=== PATIENT | female | born 2000 | race Caucasian/White ===

== ENCOUNTER 2021-10-06 19:58 | Emergency (ER) | payer MEDICAID ==
[~2021-10-06] VITALS: Ht 162.6 cm; Wt 56.7 kg
[2021-10-06 20:33] VITALS: BP_SYST 121
--- NOTE | 2021-10-06 20:36 | NUR ---
Patient BIB by family from home. C/O urinary problem x 1 day. Patient reported, had painful urination, urgency and frequency since yesterday, no fever or chills.
[2021-10-06 20:48] LABS: BILIRUBIN,URINE NEGATIVE (NEGATIVE); BLOOD, URINE 3+ (NEGATIVE); COLOR,URINE YELLOW (YELLOW); GLUCOSE,URINE NEGATIVE (NEGATIVE); KETONES,URINE NEGATIVE (NEGATIVE); LEUKOCYTE ESTERASE ,URINE 2+ (NEGATIVE); NITRITE, URINE NEGATIVE (NEGATIVE); PH,URINE 5.5 (5.0-8.0); PROTEIN URINE TRACE (NEGATIVE); UROBILINOGEN,URINE 0.2 (0.2-1.0)
--- NOTE | 2021-10-06 20:51 | NUR ---
ER Dr. Sanchez at bedside examining patient.
[2021-10-06 20:54] LABS: CLARITY/URINE CLOUDY (CLEAR)
[2021-10-06 21:00] LABS: BACTERIA,URINE FEW /HPF (None Seen); WBC,URINE 50-80 /HPF (0-3)
[2021-10-06 21:01] LABS: MUCUS,URINE 1+ /LPF (None Seen)
[2021-10-06] MEDS ORDERED: CEPH250C PO (21:01)
[2021-10-06 21:35] VITALS: BP_SYST 121
--- NOTE | 2021-10-06 21:35 | NUR ---
Patient given written and verbal discharge instructions and verbalizes understanding. ER MD discussed with patient the results and treatment provided. Patient in stable condition. ID arm band removed. Rx of Keflex given. Patient educated on pain management and to follow up with PMD. Pain Scale 2/10. Opportunity for questions provided and answered. Medication side effect fact sheet provided.
== END 2021-10-06 21:35 | disposition home or self-care (01) ==
LOC: SED 19:58
DX: N39.0 Urinary tract infection, site not specified (principal); Z79.899 Other long term (current) drug therapy
CPT/HCPCS: 81000; 81025; 87086; 99283

== ENCOUNTER 2022-08-20 13:13 | Emergency (ER) | payer MEDICAID ==
[~2022-08-20 13:13] MED LIST: CEPH250C PO
== END 2022-08-20 14:05 | disposition left against medical advice (07) ==
LOC: SED 13:13
DX: N32.89 Other specified disorders of bladder (principal); Z53.21 Procedure and treatment not carried out due to patient leaving prior to being seen by health care provider